=== PATIENT | female | born 1985 | race Caucasian/White ===

== ENCOUNTER → 2018-03-17 | Outpatient (CLI) | payer OTHER ==
--- NOTE | 2018-03-18 10:51 | XCELERA REPORT ---
[address] [address] Lower Extremity Venous Evaluation Name: GARY KUMAR Age: 32 yrs Gender: Female : 1985 Patient Status: Outpatient Patient Location: Study Date: 03/17/2018 04:18 PM Procedure: A unilateral duplex scan of the right lower extremity veins was performed. The evaluation included responses to compression and other maneuvers. The contralateral femoral vein was not evaluated. Reason For Study: RLE SWELLING Ordering Physician: CHELSIE BROOKS Performed By: Dmitriy Cleveland Right Sided Venous Evaluation Normal vessel filling wall to wall, compression and augmentation as well as Colour flow down to the infrageniculate veins. Interpretation Summary There is no evidence of deep vein thrombosis in the right lower extremity. : CHELSIE BROOKS > Farhan De Souza
== END ==
LOC: SP 15:09
PROVIDERS: ATTEND Physician Assistant
DX: M79.661 Pain in right lower leg (principal); M25.50 Pain in unspecified joint; R60.9 Edema, unspecified
CPT/HCPCS: 93971

== ENCOUNTER → 2018-03-25 | Outpatient (CLI) | payer OTHER ==
--- NOTE | 2018-03-26 09:25 | RADIOLOGY REPORT (SQ) ---
EXAM DESCRIPTION: NM 3 PHASE BONE SCAN COMPLETED DATE/TIME: 03/25/2018 2:28 pm REASON FOR STUDY: PAIN IN RIGHT LOWER LEG (M79.661), SPRAIN OF UNSPEC LIGAMENT OF RIGHT ANKLE M79.66 1 PAIN IN RIGHT LOWER LEG S93.401S SPRAIN OF UNSPECIFIED LIGAMENT OF RIGHT ANKLE, SEQU COMPARISON: Outside plain films 03/17/2018 RADIONUCLIDE AND DOSE: 21.9 millicuries Tc99m MDP. The route of agent administration: Intravenous. ADDITIONAL DRUGS AND DOSES: None. TECHNIQUE: Following injection of the radiopharmaceutical, serial blood flow images acquired. Equil ibrium blood pool images then acquired. Routine delayed images at 3 hours acquired of the areas of c linical concern with additional focused images as needed. AREA OF INTEREST: Bilateral feet LIMITATIONS: None. FINDINGS: VASCULAR FLOW IMAGES: Asymmetrically increased flow to the left foot and ankle BLOOD POOL IMAGES: Asymmetrically increased blood pool activity over the left foot and ankle BONES: On delayed images, there is increased uptake over the left hindfoot, along the tibiotalar join t talus and subtalar joint regions. No definite abnormal increased uptake over the right foot or ankle on the delayed images. IMPRESSION: Increased blood flow/ blood pool and delayed activity over the left foot and ankle as ab ove. 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 COMMENT: Quality measure 147: Current bone scan is compared with any available plain radiographs, p rior bone scans, and CT/MRI. TECHNICAL DOCUMENTATION: JOB ID: [id number] [employer]- All Rights Reserved Reading location - IP/workstation name: [email or web address]
== END ==
LOC: RAD 10:12
PROVIDERS: ATTEND Physician Assistant
DX: S93.401S Sprain of unspecified ligament of right ankle, sequela (principal); X58.XXXS Exposure to other specified factors, sequela; M79.661 Pain in right lower leg
CPT/HCPCS: 78315; A9561; Q9969